=== PATIENT | female | born 1955 | race Caucasian/White ===

== ENCOUNTER 2016-09-06 07:29 | Inpatient (IN) | payer MEDICAID ==
[2016-09-06] MEDS ORDERED: fentaNYL 25 MCG/HR Transdermal Patch TRDERM SCH (08:00)
[2016-09-06] MEDS ORDERED: Dextrose 5%-Lactated Ringers 1,000 ML IV SCH (08:00)
[2016-09-06] MEDS ORDERED: cefOXitin 2 GM in Sodium Chloride 0.9% 50 ML IV ONE (09:00)
[2016-09-06] MEDS ORDERED: Propofol 200 MG/20 ML SDV ONE (09:10)
[2016-09-06] MEDS ORDERED: fentaNYL 100 MCG/2 ML SDV ONE (09:11)
[2016-09-06] MEDS ORDERED: Midazolam 1 MG/ML 2 ML SDV ONE (09:11)
[2016-09-06] MEDS ORDERED: Succinylcholine/Normal Saline 200 MG/10 ML Syringe ONE (09:12)
[2016-09-06] MEDS ORDERED: Ondansetron 4 MG/2 ML SDV ONE ×2 (09:12→13:23)
[2016-09-06] MEDS ORDERED: Dexamethasone 4 MG/ML SDV ONE (09:12)
[2016-09-06] MEDS ORDERED: Rocuronium 50 MG/5 ML Vial ONE (09:12)
[2016-09-06] MEDS ORDERED: Neostigmine Methylsulfate 1 MG/ML 5 ML Syringe ONE (09:12)
[2016-09-06] MEDS ORDERED: fentaNYL 250 MCG/5 ML SDV ONE ×2 (09:13→10:19)
[2016-09-06] MEDS ORDERED: HYDROmorphone/Normal Saline 15 MG/30 ML PCA IV PRN (09:14)
[2016-09-06] MEDS ORDERED: Naloxone 0.4 MG/ML SDV IV PRN (09:16)
[2016-09-06] MEDS ORDERED: Meropenem 500 MG SDV ONE (10:16)
[2016-09-06] MEDS ORDERED: Lactated Ringers 1,000 ML ONE (11:01)
[2016-09-06] MEDS: VERIFY FENTANYL PATCH TOP SCH ×2 (13:50→21:25)
[2016-09-06] MEDS: cefOXitin 2 GM in Sodium Chloride 0.9% 50 ML IV SCH ×2 (16:07→21:25)
[2016-09-06] MEDS: Dextrose 5%-Lactated Ringers 1,000 ML IV SCH ×2 (16:08→20:38)
[2016-09-06] MEDS: Pantoprazole 40 MG Tab.CR PO SCH (16:20)
[2016-09-06] MEDS: Ondansetron 4 MG/2 ML SDV IVPUSH PRN (17:23)
[2016-09-07] MEDS: Dextrose 5%-Lactated Ringers 1,000 ML IV SCH ×3 (02:50→19:32)
[2016-09-07] MEDS: cefOXitin 2 GM in Sodium Chloride 0.9% 50 ML IV SCH (03:49)
[2016-09-07] MEDS: Pantoprazole 40 MG Tab.CR PO SCH (08:01)
[2016-09-07] MEDS: VERIFY FENTANYL PATCH TOP SCH ×2 (08:02→23:19)
[2016-09-07] MEDS: Ondansetron 4 MG/2 ML SDV IVPUSH PRN ×2 (09:25→18:28)
[2016-09-07] MEDS: Docusate Sodium 100 MG Cap PO SCH ×2 (09:28→21:03)
--- NOTE | 2016-09-07 13:29 | PN ---
DATE OF SERVICE: 09/07/2016 The patient has been afebrile with stable vital signs. Urine output has been satisfactory. She had a little bit of burping but no nausea. Plan will be to proceed with a full liquid diet today. We will leave the Lazo catheter in until tomorrow and back down on IV rate, otherwise maximize activity and work with pulmonary toilet. José Monteiro MD /[id number]
[2016-09-07] MEDS: Omeprazole 20 MG Cap.CR PO SCH (16:42)
[2016-09-07] MEDS ORDERED: diphenhydrAMINE 50 MG/ML SDV IVPUSH PRN (20:43)
[2016-09-07] MEDS: Simvastatin 20 MG Tab PO SCH (21:03)
[2016-09-08] MEDS: Dextrose 5%-Lactated Ringers 1,000 ML IV SCH ×2 (05:29→14:47)
[2016-09-08] MEDS: Omeprazole 20 MG Cap.CR PO SCH ×2 (07:41→16:52)
[2016-09-08] MEDS: Docusate Sodium 100 MG Cap PO SCH ×2 (08:36→20:19)
[2016-09-08] MEDS ORDERED: Magnesium Hydroxide 400 MG/5 ML Susp 30 ML Cup PO ONE (09:00)
[2016-09-08] MEDS: Bisacodyl 5 MG Tab PO SCH ×2 (09:24→20:18)
[2016-09-08] MEDS: Acetaminophen/oxyCODONE 325-5 MG Tab PO PRN ×4 (11:05→23:25)
[2016-09-08] MEDS: Simvastatin 20 MG Tab PO SCH (20:20)
[2016-09-09] MEDS: Dextrose 5%-Lactated Ringers 1,000 ML IV SCH (00:49)
[2016-09-09] MEDS: Acetaminophen/oxyCODONE 325-5 MG Tab PO PRN ×5 (03:39→21:51)
[2016-09-09] MEDS: Omeprazole 20 MG Cap.CR PO SCH ×2 (07:01→15:56)
[2016-09-09] MEDS ORDERED: Ketorolac 60 MG/2 ML SDV IM PRN (07:20)
[2016-09-09] MEDS ORDERED: Dextrose 5%-Lactated Ringers 1,000 ML IV SCH (07:23)
[2016-09-09] MEDS ORDERED: Magnesium Hydroxide 400 MG/5 ML Susp 30 ML Cup PO ONE (09:00)
[2016-09-09] MEDS: Docusate Sodium 100 MG Cap PO SCH ×2 (09:24→20:47)
[2016-09-09] MEDS: Bisacodyl 5 MG Tab PO SCH (09:25)
[2016-09-09] MEDS: Ondansetron 4 MG/2 ML SDV IVPUSH PRN ×2 (13:42→17:56)
[2016-09-09] MEDS ORDERED: Magnesium Citrate Solution 296 ML Bottle PO PRN (15:00)
[2016-09-09] MEDS: Simvastatin 20 MG Tab PO SCH (20:48)
[2016-09-09] MEDS: Ondansetron 4 MG Tab.DIS PO PRN (21:55)
[2016-09-10] MEDS: Acetaminophen/oxyCODONE 325-5 MG Tab PO PRN (05:42)
[2016-09-10] MEDS: Ondansetron 4 MG Tab.DIS PO PRN (05:43)
[2016-09-10 07:05] VITALS: BP 135/77
[2016-09-10] MEDS: Omeprazole 20 MG Cap.CR PO SCH (07:15)
[2016-09-10] MEDS ORDERED: Acetaminophen/HYDROcodone 325-5 MG Tab PO PRN (07:37)
[2016-09-10] MEDS: Docusate Sodium 100 MG Cap PO SCH (09:09)
--- NOTE | 2016-09-12 08:58 | PN ---
DATE OF SERVICE: 09/08/2016 The patient has been afebrile with stable vital signs. Oral intake has been fair. We will move up to regular diet today with bowel stimulation. I will have her get in the shower and switch over to oral pain medication. José Monteiro MD /[id number]
--- NOTE | 2016-09-12 10:29 | DISCH ---
FINAL DIAGNOSES: 1. High-grade uterine prolapse. 2. Extensive intraabdominal adhesions. 3. Bariatric surgery status. 4. History of gastroesophageal reflux disease. PROCEDURES: This was done on 09/06, exploratory laparotomy with lysis of adhesions, 1. Total abdominal hysterectomy with bilateral salpingo-oophorectomy with a suprapubic urethropexy. 2. Staple repair of small bowel deserosalization x2. 3. Placement of Vicryl mesh to displace small bowel away from pelvic and abdominal james. 4. Transabdominal colpopexy. HOSPITAL COURSE: This is a 61-year-old female presenting with high-grade uterine prolapse. After preop evaluations, she wished to proceed with a DANIEL-BSO and transabdominal colpopexy. On the day of surgery, these procedures were undertaken. She had quite extensive small bowel adhesions involving the abdominal wall. Two of these areas were deserosalized, and deserosalized areas were closed transversely by ruthie and at conclusion of the procedure, Vicryl mesh was placed in order to minimize recurrent adhesion formation between the small bowel and the abdomen and pelvis. Postoperatively, she had some constipation, but otherwise had an unremarkable postoperative course. She will be discharged home on Vicodin 5/325, 1 to 2 tabs q.4 hours p.r.n. pain #50, and otherwise continue her usual at home medications. Followup with Dr. Monteiro in [facility] on 09/16/2016.
--- NOTE | 2016-09-12 10:55 | PN ---
DATE OF SERVICE: 09/09/2016 The patient has been afebrile with stable vital signs. She is complaining of a headache this morning. She has been taking the [place] and has also had some Toradol added to the equation to help with the headaches. Otherwise, she is having quite a bit in the way of cramping, has not moved her bowels as of yet, will give her some milk of magnesia this morning. If no bowel movement as of yet this afternoon, will give a bottle of magnesium citrate. The STANLEY drain, I think, we can get out at this point, and she will probably be ready for discharge home tomorrow. José Monteiro MD /[id number]
--- NOTE | 2016-09-14 17:04 | OR ---
DATE OF PROCEDURE: 09/06/2016 PREOPERATIVE DIAGNOSIS: High-grade uterine prolapse. POSTOPERATIVE DIAGNOSES: 1. High-grade uterine prolapse. 2. Extensive intraabdominal adhesions of small bowel and abdominopelvic sidewalls. OPERATIVE PROCEDURE: Exploratory laparotomy with lysis of adhesions and: 1. Total abdominal hysterectomy with bilateral salpingo-oophorectomy with concurrent suprapubic urethropexy (02352). 2. Stapled repair of areas of small bowel deserosalization x2 (15841 x2). 3. Transabdominal colpopexy (59172). 4. Placement of Vicryl mesh to displaced small bowel from pelvic and abdominal wall to limit recurrent adhesion formation (94878). ANESTHESIA: General. INDICATIONS FOR PROCEDURE: This is a 61-year-old female presenting with progressively worsening uterine prolapse. After preop evaluation and discussion, plan is to proceed with a total abdominal hysterectomy; with an age of 61, bilateral salpingo-oophorectomy will be performed as well, and transabdominal colpopexy will be used to treat the tendency for prolapse of the vaginal cuff and adjacent bladder and rectum. As this procedure frequently can result in some straightening of the urethra with stress incontinence resulting, a suprapubic urethropexy will be undertaken as well. Potential risks of the procedure including bleeding, infection, injury to the viscera in the area as well as possible cardiopulmonary septic or hemorrhagic complications leading to were discussed, and the patient wishes to proceed. DETAILS OF PROCEDURE: The patient was taken to the operating room and placed in supine position. After general endotracheal anesthesia was induced, a Lazo catheter was inserted, and the abdomen was prepped and draped. A transverse Pfannenstiel type incision was then made and carried down through the skin and subcutaneous tissue and through the anterior rectus sheath, subrectus sheath. Flaps were then raised superiorly and inferiorly, and the midline peritoneum divided. At the upper end of the incision, there was dense adherence between some loops of small bowel and the anterior abdominal wall. These were taken down. Two areas of significant deserosalization were present after the dissection, and those areas were then repaired by means of a transversely oriented GALEN staple line. Additionally, the small bowel adhesions to pelvic sidewall were undertaken as well, and at that point, the small bowel was retracted up above the area of the primary operative field within the pelvis. At this point, the uterus was retracted upward, on each side. Using ruthie, the infundibulopelvic ligament along with the cardinal ligaments were divided with the GALEN ruthie. Peritoneal reflection of bladder on the uterus was then divided and the bladder dissected down onto the upper aspect of the vagina, which was then divided circumferentially, and the specimen of the uterus, and tubes, and ovaries was then delivered from the field. The vaginal cuff was then closed with a running #1 Vicryl stitch. A polypropylene mesh measuring 2 cm by initially around 10 cm, was then sutured to the posterior aspect of the vaginal cuff with some 3-0 Prolene stitch. Using a TA-30 stapler, the vaginal cuff was then stapled to the mesh with the stapler. A transverse incision in the peritoneum, over the sacral promontory, was then made, and a peritoneal tunnel between that point and the area just above the upper aspect of vaginal cuff was then created; at the lower end of that point of resection, the peritoneum was also opened to the mesh and pulled up through that area, pulling the vaginal cuff securely up toward the sacral promontory. The mesh was then affixed to sacral promontory with titanium tacking screws. Some redundant mesh was then excised. The peritoneum over the 2 areas of the peritoneal incision were then closed with 3-0 Vicryl stitches. Pelvis was then irrigated with antibiotic-containing saline solution. The bladder was then dissected off the retropubic area, and using the lower end of Lazo catheter as a guide, the urethrovesical junction was identified. The perivaginal fascia was then dissected such that the sutures of #1 Vicryl stitch could be placed 2 cm lateral to the urethrovesical junction, and the perivaginal fascia. The suture was then placed through the periosteum of the overlying pubic bone and then tied. This resulted in what appeared to be satisfactory elevation of the urethrovesical junction. The Lazo catheter was moved in and out, which confirmed that it was not overly tightened. At this point, no further problems were noted. To limit recurrent adhesion formation between the small bowel and the pelvic abdominal james, a 30 sq cm segment of Vicryl mesh was then placed behind the urinary bladder along the pelvic sidewalls, up against the abdominal wall. The midline peritoneum musculature was then approximated with #2 Vicryl stitch as was the anterior rectus sheath, and skin closed with 4-0 Vicryl subcuticular stitch. Dressing was applied. The patient was taken to the recovery room in satisfactory condition. José Monteiro MD /[id number]
== END 2016-09-10 11:15 | disposition home or self-care (01) | DRG 742 ==
LOC: JP.SDSSCHI 07:29 → JP.SDS 07:29 → EDSTATUS 08:15 → JP.2SS 13:00
PROVIDERS: ADMIT Surgery; ATTEND Surgery
PROC: 0DB80ZX Excision of Small Intestine, Open Approach, Diagnostic (ICD-10-PCS; principal; 2016-09-06)
PROC: 0UT20ZZ Resection of Bilateral Ovaries, Open Approach (ICD-10-PCS; principal; 2016-09-06)
PROC: 0UTC0ZZ Resection of Cervix, Open Approach (ICD-10-PCS; principal; 2016-09-06)
PROC: 3E0M05Z Introduction of Adhesion Barrier into Peritoneal Cavity, Open Approach (ICD-10-PCS; principal; 2016-09-06)
PROC: 0UT90ZZ Resection of Uterus, Open Approach (ICD-10-PCS; principal; 2016-09-06)
PROC: 0TSD0ZZ Reposition Urethra, Open Approach (ICD-10-PCS; principal; 2016-09-06)
PROC: 0UT70ZZ Resection of Bilateral Fallopian Tubes, Open Approach (ICD-10-PCS; principal; 2016-09-06)
PROC: 0USG0ZZ Reposition Vagina, Open Approach (ICD-10-PCS; principal; 2016-09-06)
DX: N81.3 Complete uterovaginal prolapse (principal); K91.2 Postsurgical malabsorption, not elsewhere classified; Z98.84 Bariatric surgery status; Z98.0 Intestinal bypass and anastomosis status; E53.8 Deficiency of other specified B group vitamins; E55.9 Vitamin D deficiency, unspecified; K21.9 Gastro-esophageal reflux disease without esophagitis; K66.0 Peritoneal adhesions (postprocedural) (postinfection)
CPT/HCPCS: 88305; 88309; 94762; A9270-GY; C1781; J0694; J1100; J1170; J1200; J1885; J2185; J2250; J2405; J2704; J3010; J7042; J7050; J7120

== ENCOUNTER 2017-02-27 07:16 | Day surgery (SDC) | payer MEDICAID ==
[~2017-02-27 07:16] MED LIST: Bupivacaine 0.5% 50 ML MDV ONE; Lidocaine 1% with EPINEPHrine 1:100,000 50 ML MDV ONE
[2017-02-27] MEDS ORDERED: Dextrose 5%-Lactated Ringers 1,000 ML IV SCH (08:00)
[2017-02-27] MEDS ORDERED: ceFAZolin 2 GM in Sodium Chloride 0.9% 50 ML IV ONE (08:30)
[2017-02-27] MEDS ORDERED: Dexamethasone 4 MG/ML SDV ONE (08:34)
[2017-02-27] MEDS ORDERED: Succinylcholine 200 MG/10 ML MDV ONE (08:34)
[2017-02-27] MEDS ORDERED: Glycopyrrolate 0.2 MG/ML 5 ML MDV ONE (08:34)
[2017-02-27] MEDS ORDERED: Propofol 200 MG/20 ML SDV ONE ×2 (08:34→10:14)
[2017-02-27] MEDS ORDERED: Neostigmine Methylsulfate 1 MG/ML 5 ML Syringe ONE (08:34)
[2017-02-27] MEDS ORDERED: Ondansetron 4 MG/2 ML SDV ONE (08:34)
[2017-02-27] MEDS ORDERED: Rocuronium 50 MG/5 ML Vial ONE (08:34)
[2017-02-27] MEDS ORDERED: Meropenem 500 MG SDV ONE (10:56)
[2017-02-27] MEDS ORDERED: Lactated Ringers 1,000 ML ONE (11:02)
[2017-02-27] MEDS ORDERED: Naloxone 0.4 MG/ML SDV ONE (11:35)
[2017-02-27] MEDS ORDERED: Acetaminophen/HYDROcodone 325-5 MG Tab PO PRN (12:58)
[2017-02-27 14:41] VITALS: BP 145/83
--- NOTE | 2017-03-06 12:30 | OR ---
DATE OF PROCEDURE: 02/27/2017 PREOPERATIVE DIAGNOSES: 1. Chronic constipation. 2. Painful contracted scar associated with underlying incisional hernia, lower abdomen. POSTOPERATIVE DIAGNOSES: 1. Chronic constipation with normal exam, other than for limited colonic diverticulosis. 2. Painful scar of lower abdomen with associated incisional hernia. OPERATIVE PROCEDURES: 1. Flexible colonoscopy. 2. Revision of abdominal scar with repair of underlying incisional hernia (24950, 51494, 71616). ANESTHESIA: IV sedation converted to general. AUTO SERVICE MECHANIC: Kristen Vergara PA-C. INDICATIONS FOR PROCEDURE: This is a 61-year-old female presenting with quite marked and worsening constipation. The plan is to proceed with flexible colonoscopy with biopsies and/or polypectomy for diagnostic purposes. The patient also has a transverse Pfannenstiel-type incision used for a previous gynecologic procedure, which is associated with an incisional hernia development in the center of the incision along with marked contracture of the lower aspect of the scar causing this to be quite painful and chronically inflamed. The plan is to proceed with revision of that scar along with repair of the underlying hernia. Potential risks including bleeding, infection, possible recurrence of the contracture, recurrence of the hernia, as well as the remote possibility of cardiopulmonary, septic, or hemorrhagic complications leading to were discussed, and the patient wishes to proceed. DETAILS OF PROCEDURE: The patient was taken to the operating room and placed in a left lateral decubitus position. IV sedation was administered, after which the initial digital rectal exam was performed and was unremarkable. The colonoscope was then passed into the rectum with retroflexion revealing uncomplicated hemorrhoidal columns. The scope was eventually passed to the cecum. The prep was fairly good with there only being a small amount of liquid and some scattered solid stool present. The only abnormality noted was some limited uncomplicated left-sided colonic diverticula. Otherwise, there were no areas of inflammation or colitis per se and no polyps or other signs of neoplasia. There were no narrowing points of partial obstruction. The scope was then withdrawn, and the above findings reconfirmed. The patient was then placed back into a supine position and a general endotracheal anesthetic induced. A transversely-oriented incision measuring 31 cm was then made over the previous Pfannenstiel incision. This included the area of contracture, which ran along the inferior aspect of the incision causing this tissue to be contracted downward toward the abdominal wall. As the soft tissue was then excised along the incision, it was freed up to a point where there was a normal-appearing subcutaneous tissue in all directions, thus removing the contracted portion of the scar. A small roughly 2 cm incisional hernia was present in the midline. This was closed with a running #2 Vicryl stitch at the fascia level. The incision was then closed over a 10-[place] round Brandon-Hernandez drain with 2 layers of 3-0 Vicryl stitch deep and then ruthie for the skin. Dressing was applied. The patient was taken to the recovery room in a satisfactory condition. There were no evident complications. Physician faculty i on call medical assistant, Kristen Vergara, played an essential role in assisting in this case, helping to position the patient, as well as suturing and cutting sutures when indicated, and her presence improved patient safety and decreased the operative time. One additional feature in today's exam was that the patient felt quite a bit better after the MiraLAX prep. She will be instructed to if, as needed, in addition to other stool softeners, use MiraLAX perhaps 119 grams in 32 ounces of Gatorade 2 to 3 times a week to help maintain a more satisfactory colon function. José Monteiro MD /[id number]
== END 2017-02-27 14:42 | disposition home or self-care (01) ==
LOC: JP.SDS 07:16
PROVIDERS: ATTEND Surgery
DX: K43.2 Incisional hernia without obstruction or gangrene (principal); L90.5 Scar conditions and fibrosis of skin; K59.09 Other constipation; K57.30 Diverticulosis of large intestine without perforation or abscess without bleeding; E78.00 Pure hypercholesterolemia, unspecified
CPT/HCPCS: 11406; 12037; 36415; 45378; 49560; 80053; 82728; 83735; 84100; 85027; 88304; A9270; J0330; J0690; J1100; J2020; J2185; J2310; J2405; J2704; J2710; J3010; J7042; J7050; J7120

== ENCOUNTER 2017-07-10 12:27 | Emergency (ER) | payer MEDICAID ==
[2017-07-10 12:53] VITALS: BP 166/86
--- NOTE | 2017-07-10 13:16 | EDM.PDOC ---
ED HPI GENERAL MEDICAL PROBLEM - General Chief Complaint: Neck Problem Stated Complaint: NECK PAIN MAINLY ON LEFT SIDE Time Seen by Provider: 07/10/17 13:05 Source of Information: Reports: Patient History Limitations: Reports: No Limitations - History of Present Illness INITIAL COMMENTS - FREE TEXT/NARRATIVE: 62 yo female went to bed without neck pain. Awoke this morning with pain and stiffness. No radiation of the pain down her arm. No hx of neck pain or injury. Onset: Today Onset Date: 07/10/17 Onset Time: 07:30 Duration: Hour(s):, Constant Location: Reports: Neck Quality: Reports: Ache Severity: Moderate Improves with: Reports: Rest Worsens with: Reports: Movement Context: Reports: Other (unknown) Associated Symptoms: Reports: No Other Symptoms Treatments SAUSAGE TIER: Reports: Other (see below) (none) Left Neck Pain Score (Numeric/FACES): 3 - Related Data Allergies Allergy/AdvReac Type Severity Reaction Status Date / Time No Known Allergies Allergy Verified 07/10/17 12:52 Home Meds: Home Meds Aspirin 325 mg PO DAILY 12/26/13 [History] Cyanocobalamin (Vitamin B-12) [Vitamin B-12] 1,000 mcg SL DAILY 12/26/13 [ History] Estradiol [Estrace 0.01% Vaginal Crm] 1 each VAG Q3D PRN 12/26/13 [History] Simvastatin [Zocor] 20 mg PO DAILY 12/26/13 [History] Triamcinolone Acetonide [Triamcinolone Acetonide 0.5%] 1 each TOP BID PRN [History] Vitamin B Complex [B Complex] 1 each PO DAILY 12/26/13 [History] Cholecalciferol (Vitamin D3) [Vitamin D3] 5,000 units PO DAILY 05/01/15 [History ] Ferrous Fumarate 325 mg PO DAILY 05/01/15 [History] Omeprazole 20 mg PO BID 05/01/15 [History] Clotrimazole/Betamethasone Dip [Lotrisone Cream] 1 film TOP BID 09/02/16 [ History] Pediatric Multivitamin Comb#30 [Gummies Children Multivitamin] 1 tab PO DAILY [History] Na Phos,M-B/Na Phos,DI-B [Fleet Enema] 1 bottle RECTAL DAILY PRN 02/23/17 [ History] Polyethylene Glycol 3350 [MiraLAX] 17 gm PO DAILY PRN 02/23/17 [History] Sennosides/Docusate Sodium [Senokot-S Tablet] 1 tab PO DAILY 02/23/17 [History] L.acidoph,Paracasei, B.lactis [Probiotic] 1 tab PO DAILY 07/10/17 [History] Past Medical History HEENT History: Reports: Impaired Vision Cardiovascular History: Reports: High Cholesterol Gastrointestinal History: Reports: Bowel Obstruction, Cholelithiasis, Colon Polyp, Diverticulosis, GERD, Hemorrhoids, Hiatal Hernia Genitourinary History: Reports: Urinary Incontinence STITCHDOWN THREAD LASTER History: Reports: Dysfunctional Uterine Bleeding, Fibroids, Musculoskeletal History: Reports: Osteoarthritis Psychiatric History: Reports: Anxiety Endocrine/Metabolic History: Reports: Osteopenia Hematologic History: Reports: Anemia, B12 Deficiency Dermatologic History: Reports: Eczema Other Dermatologic History: exzema - Infectious Disease History Infectious Disease History: Reports: Chicken Pox, Measles, Mumps - Past Surgical History HEENT Surgical History: Reports: LASIK GI Surgical History: Reports: Bariatric Procedure, Cholecystectomy, Colonoscopy , EGD, Hernia, Inguinal, Kylah Fundoplication Female Surgical History: Reports: Breast Biopsy, D&C, Hysterectomy, Tubal Ligation Oncologic Surgical History: Reports: Biopsy of Breast Social & Family History - Family History Family Medical History: Noncontributory - Tobacco Use Smoking Status *Q: Never Smoker Years of Tobacco use: 30 Packs/Tins Daily: 0.5 Used Tobacco, but Quit: No Month Tobacco Last Used: 0 Second Hand Smoke Exposure: No - Caffeine Use Caffeine Use: Reports: Coffee - Alcohol Use Days Per Week of Alcohol Use: 0 - Recreational Drug Use Recreational Drug Use: No ED ROS GENERAL - Review of Systems Review Of Systems: See Below Constitutional: Reports: No Symptoms HEENT: Reports: No Symptoms Respiratory: Reports: No Symptoms Cardiovascular: Reports: No Symptoms Musculoskeletal: Reports: Neck Pain Skin: Reports: No Symptoms Neurological: Reports: No Symptoms ED EXAM, UPPER BACK/NECK PAIN - Physical Exam Exam: See Below Exam Limited By: No Limitations General Appearance: Alert, WD/WN, No Apparent Distress Eye Exam: Bilateral Eye: Normal Inspection Ears Exam: Normal External Exam, Hearing Grossly Normal Nose Exam: Normal Inspection, Normal Mucousa, No Blood Throat/Mouth Exam: Normal Inspection, Normal Lips, Normal Oropharynx, Normal Voice, No Airway Compromise Head Exam: Atraumatic, Normocephalic Neck Exam: Normal Inspection, Limited Range of Motion (near full ROM, pain with turning of head to the Right mostly. ), Muscle Spasm, Painful Range of Motion, Paraspinous Muscle Tender (On left, especially near occiput), Stiff Neck, Tenderness (L paraspinous). No: Spinous Processes Tender, Tender Midline Neurologic: cleaning specialist II-XII nml As Tested, No Motor/Sensory Deficits, Alert, Normal Mood/Affect, Oriented x 3 Psychiatric: Normal Affect, Normal Mood Skin Exam: Normal Color, Warm/Dry Lymphatic: No Adenopathy Course - Vital Signs Last Recorded V/S: Last Vital Signs Temp 36.3 C 07/10/17 12:51 Pulse 67 07/10/17 12:51 Resp 14 07/10/17 12:51 BP 166/86 H 07/10/17 12:51 Pulse Ox 96 07/10/17 12:51 Departure - Departure Time of Disposition: 13:16 Disposition: Home, Self-Care 01 Condition: Good Clinical Impression: Neck muscle strain Qualifiers: Encounter type: initial encounter Qualified Code(s): S16.1XXA - Strain of muscle, fascia and tendon at neck level, initial encounter - Discharge Information Referrals: Phani Resendez PA [Primary Care Provider] - Forms: ED Department Discharge Additional Instructions: Take 5-10 mg every 8 hrs of Flexeril as needed for neck stiffness. Take ibuprofen 400 mg every 6 hrs with food. Add acetaminophen as needed for added relief. Keep neck warm. Massage of area may help loosen the muscles. If you have access to a whirlpool this may be helpful. Recheck with your provider before the end of the week if not improving.
== END 2017-07-10 13:20 | disposition home or self-care (01) ==
LOC: JP.ED 12:27
DX: S16.1XXA Strain of muscle, fascia and tendon at neck level, initial encounter (principal); X58.XXXA Exposure to other specified factors, initial encounter; Z79.899 Other long term (current) drug therapy
CPT/HCPCS: 99283

== ENCOUNTER → 2022-05-02 | Day surgery (SDC) | payer MEDICARE | LOC: JP.SDS 06:00 | DX: Z12.11 Encounter for screening for malignant neoplasm of colon (principal); K57.30 Diverticulosis of large intestine without perforation or abscess without bleeding; Z86.010 Personal history of colon polyps ==

== ENCOUNTER 2024-03-06 06:18 | Day surgery (SDC) | payer MEDICARE ==
[2024-03-06] MEDS: Sodium Chloride 0.9% 1,000 ML IV SCH (07:14)
[2024-03-06] MEDS ORDERED: fentaNYL 50 MCG/ML SDV ONE (07:15)
[2024-03-06] MEDS ORDERED: Midazolam 1 MG/ML 2 ML SDV ONE (07:15)
[2024-03-06] MEDS ORDERED: Propofol 200 MG/20 ML SDV ONE (07:15)
[2024-03-06 09:37] VITALS: BP 113/73; PULSE 58
== END 2024-03-06 09:55 | disposition home or self-care (01) ==
LOC: JP.SDS 06:18
PROVIDERS: ATTEND Surgery
DX: R13.10 Dysphagia, unspecified (principal); K22.89 Other specified disease of esophagus; K57.30 Diverticulosis of large intestine without perforation or abscess without bleeding; E78.5 Hyperlipidemia, unspecified
CPT/HCPCS: 43239; 45378; J2250; J2704; J3010; J7030; 00813-QZ; 88305